=== PATIENT | male | born 1985 ===

== ENCOUNTER 2018-04-04 18:50 | Emergency (ER) | payer OTHER ==
[2018-04-04 18:59] VITALS: TEMP 98.7
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
[2018-04-04 22:45] VITALS: BP 130/82; PULSE 72; RESP 15
[2018-04-05 00:52] VITALS: O2SAT 100
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
== END 2018-04-04 22:45 | disposition home or self-care (01) ==
LOC: H.ER 18:50
DX: M79.632 Pain in left forearm (principal); V49.40XA Driver injured in collision with unspecified motor vehicles in traffic accident, initial encounter
CPT/HCPCS: 73090; 96372; 99284; J1885